=== PATIENT | male | born 1990 | race Caucasian/White ===

== ENCOUNTER 2023-02-17 11:55 | Emergency (ER) | payer OTHER ==
[2023-02-17 12:06] VITALS: BP 125/64; PULSE 81; RESP 20; TEMP 97.7; BMI 28.2
[2023-02-17] MEDS ORDERED: methaDONE HCL 10 MG TABLET ONE (13:00)
== END 2023-02-17 13:27 | disposition home or self-care (01) ==
LOC: JERFT 11:55
DX: F11.20 Opioid dependence, uncomplicated (principal); Z76.0 Encounter for issue of repeat prescription
CPT/HCPCS: 99283-25

== ENCOUNTER 2023-08-07 08:51 | Emergency (ER) | payer OTHER ==
[2023-08-07 09:03] VITALS: BP 141/84; PULSE 89; RESP 18; TEMP 97.3; BMI 29.5
[2023-08-07] MEDS ORDERED: ONDANSETRON 4 MG/2 ML VIAL ONE (09:21)
[2023-08-07] MEDS ORDERED: FAMOTIDINE 20 MG/50 ML IVPB 20 MG/50 ML MG IVPB ONE (09:21)
[2023-08-07] MEDS: FAMOTIDINE 20 MG/50 ML IVPB 20 MG/50 ML MG IVPB ONE (09:37)
[2023-08-07] MEDS: ONDANSETRON 4 MG/2 ML VIAL IVPUSH ONE (09:37)
[2023-08-07] MEDS: SODIUM CHLORIDE 0.9% 500 ML INFUS.BAG IV ONE (09:37)
[2023-08-07 09:40] LABS: BASO % 0.2 % (0-2.0); EOS % 0.2 % (0-4.5); HEMATOCRIT 41.7 % (35.4-49); HEMOGLOBIN 14.6 GM/dL (11.7-16.9); LYMPH % 10.3 % (8-40); MCH 32.2 pg (25.7-33.7); MCHC 35.1 g/dl (32.0-35.9); MEAN CELL VOLUME 91.6 fl (80-96); MEAN PLT VOLUME 9.6 fl (7.5-11.1); MONO % 4.4 % (3.8-10.2); NEUT % 84.9 % (42.8-82.8); PLATELET COUNT 192 10^3/uL (134-434); RBC 4.55 M/mm3 (4.00-5.60); RDW 13.3 % (11.9-15.9); WHITE BLOOD COUNT 10.3 K/mm3 (4.0-10.0)
[2023-08-07 10:03] LABS: POTASSIUM 3.9 mmol/L (3.5-5.1)
[2023-08-07 10:08] LABS: BLOOD UREA NITROGEN 16.2 mg/dL (7-18); CALCIUM 9.2 mg/dL (8.5-10.1)
[2023-08-07 10:09] LABS: ALBUMIN 4.3 g/dl (3.4-5.0)
[2023-08-07 10:12] LABS: CREATININE 0.9 mg/dL (0.55-1.3)
[2023-08-07 10:13] LABS: TOT PROT 7.3 g/dl (6.4-8.2)
[2023-08-07 10:14] LABS: BILIRUBIN,TOTAL 2.4 mg/dL (0.2-1)
[2023-08-07] MEDS ORDERED: methaDONE HCL 10 MG TABLET ONE (11:36)
[2023-08-07] MEDS ORDERED: methaDONE HCL 40 MG DISPERSABLE TABLET ONE (11:36)
[2023-08-07] MEDS: methaDONE HCL 40 MG DISPERSABLE TABLET PO ONE (11:42)
[2023-08-07] MEDS: clonazePAM 0.25 MG ODT TABLETS SL ONE (12:10)
[2023-08-07] MEDS ORDERED: clonazePAM 0.25 MG ODT TABLETS SL ONE (12:10)
== END 2023-08-07 12:33 | disposition home or self-care (01) ==
LOC: JER 08:51
PROC: 3E033GC Introduction of Other Therapeutic Substance into Peripheral Vein, Percutaneous Approach (ICD-10-PCS; principal; 2023-08-07)
PROC: 3E033GC Introduction of Other Therapeutic Substance into Peripheral Vein, Percutaneous Approach (ICD-10-PCS; 2023-08-07)
DX: R11.2 Nausea with vomiting, unspecified (principal)
CPT/HCPCS: 36415; 80053; 83690; 85025; 93005; 93010; 96365; 96375; 99284-25

== ENCOUNTER 2023-08-20 18:17 | Emergency (ER) | payer OTHER ==
[2023-08-20 18:32] VITALS: BP 136/81; PULSE 94; RESP 17; TEMP 98.4; BMI 25.7
[2023-08-20] MEDS ORDERED: clonazePAM 0.5 MG TABLET ONE (19:29)
[2023-08-20] MEDS: clonazePAM 0.5 MG TABLET PO ONE (19:38)
== END 2023-08-20 19:39 | disposition home or self-care (01) ==
LOC: JERFT 18:17
DX: F12.988 Cannabis use, unspecified with other cannabis-induced disorder (principal); R11.2 Nausea with vomiting, unspecified; Z76.0 Encounter for issue of repeat prescription
CPT/HCPCS: 99283-25

== ENCOUNTER 2023-11-06 16:23 | Emergency (ER) | payer OTHER ==
[2023-11-06 16:47] VITALS: BP 125/70; PULSE 70; RESP 18; TEMP 98.3; BMI 26.2
== END 2023-11-06 17:38 | disposition home or self-care (01) ==
LOC: JERFT 16:23 → JER 16:23 → JERFT 17:38
DX: Z76.0 Encounter for issue of repeat prescription (principal)
CPT/HCPCS: 99281-25

== ENCOUNTER 2023-12-05 12:03 | Emergency (ER) | payer OTHER ==
[2023-12-05 12:24] VITALS: BP 150/90; PULSE 72; RESP 18; BMI 26.9
[2023-12-05] MEDS ORDERED: FAMOTIDINE 20 MG/50 ML IVPB 20 MG/50 ML MG IVPB ONE (13:43)
[2023-12-05] MEDS ORDERED: ONDANSETRON 4 MG/2 ML VIAL ONE (13:43)
[2023-12-05] MEDS ORDERED: ACETAMINOPHEN INJECTION 100 ML ONE (13:43)
[2023-12-05] MEDS: ONDANSETRON 4 MG/2 ML VIAL IVPUSH ONE (13:54)
[2023-12-05] MEDS: ACETAMINOPHEN 1000 MG/100 ML BAG IVPB ONE (13:54)
[2023-12-05] MEDS: SODIUM CHLORIDE 0.9% 500 ML INFUS.BAG IV ONE (13:54)
[2023-12-05] MEDS: FAMOTIDINE 20 MG/50 ML IVPB 20 MG/50 ML MG IVPB ONE (13:54)
[2023-12-05 14:32] LABS: BASO % 0.4 % (0-2.0); EOS % 1.5 % (0-4.5); HEMATOCRIT 38.9 % (35.4-49); HEMOGLOBIN 13.4 GM/dL (11.7-16.9); LYMPH % 14.3 % (8-40); MCH 31.3 pg (25.7-33.7); MCHC 34.4 g/dl (32.0-35.9); MEAN PLT VOLUME 10.2 fl (7.5-11.1); MONO % 7.1 % (3.8-10.2); NEUT % 76.7 % (42.8-82.8); PLATELET COUNT 177 10^3/uL (134-434); RBC 4.27 M/mm3 (4.00-5.60); RDW 12.7 % (11.9-15.9); WHITE BLOOD COUNT 12.4 K/mm3 (4.0-10.0)
[2023-12-05 15:01] LABS: POTASSIUM 3.8 mmol/L (3.5-5.1)
[2023-12-05 15:03] LABS: CALCIUM 8.7 mg/dL (8.5-10.1)
[2023-12-05 15:04] LABS: ALBUMIN 3.7 g/dl (3.4-5.0)
[2023-12-05 15:07] LABS: CREATININE 0.8 mg/dL (0.55-1.3)
[2023-12-05 15:08] LABS: TOT PROT 6.6 g/dl (6.4-8.2)
[2023-12-05 15:54] LABS: HIV INTERPRETATION NEGATIVE (NEGATIVE)
== END 2023-12-05 15:37 | disposition home or self-care (01) ==
LOC: JER 12:03
PROC: 3E033GC Introduction of Other Therapeutic Substance into Peripheral Vein, Percutaneous Approach (ICD-10-PCS; principal; 2023-12-05)
PROC: 3E033GC Introduction of Other Therapeutic Substance into Peripheral Vein, Percutaneous Approach (ICD-10-PCS; 2023-12-05)
PROC: 3E033NZ Introduction of Analgesics, Hypnotics, Sedatives into Peripheral Vein, Percutaneous Approach (ICD-10-PCS; 2023-12-05)
DX: R10.13 Epigastric pain (principal); R11.2 Nausea with vomiting, unspecified
CPT/HCPCS: 36415; 80053; 83690; 85025; 86803; 87389; 87522; 99284-25; J0131